=== PATIENT | female | born 1990 | race Two or more races ===

== ENCOUNTER 2024-12-11 01:55 | Emergency (ER) | payer MEDICAID, OTHER ==
[~2024-12-11] VITALS: Ht 162.6 cm; Wt 97.2 kg
--- NOTE | 2024-12-11 03:17 | ED.PDOC ---
History of Present Illness(SKN HPI Comments Pt arrived in ER due to abcess to left jawline x 2 days. Pt alert and orriented x 4. Pt VSS. Pt denies trauma or injury to face. Pt states she woke up 2 days ago to small draining pimple and now her left jawline is swollen and red. No drainage present. Nausea. Ptadmits to meth use. 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 History Social History Smoker: Non-Smoker Alcohol: Denies ETOH Use Drugs: Methamphetamine Constitutional: denies: chills, diaphoresis, fatigue, fever, malaise, sweats, weakness, others EENTM: denies: blurred vision, double vision, ear bleeding, ear discharge, ear drainage, ear pain, ear ringing, eye pain, eye redness, hearing loss, mouth pain, mouth swelling, nasal discharge, nose bleeding, nose congestion, nose pain, photophobia, tearing, throat pain, throat swelling, voice changes, others Respiratory: denies: cough, hemoptysis, orthopnea, SOB at rest, shortness of breath, SOB with excertion, stridor, wheezing, others Cardiovascular: denies: chest pain, dizzy spells, diaphoresis, Dyspnea on exertion, edema, irregular heart beat, left arm pain, lightheadedness, palpitations, PND, syncope, others Gastrointestinal: denies: abdomen distended, abdominal pain, blood streaked bowels, constipated, diarrhea, dysphagia, difficulty swallowing, hematemesis, melena, nausea, poor appetite, poor fluid intake, rectal bleeding, rectal pain, vomiting, others Genitourinary: denies: abnormal vagina bleeding, burning, dyspareunia, dysuria, flank pain, frequency, hematuria, incontinence, pain, , vagina discharge, urgency, others Neurological: denies: dizziness, fainting, headache, left sided numbness, left sided weakness, numbness, paresthesia, pre-existing deficit, right sided numbness, right sided weakness, seizure, speech problems, tingling, tremors, weakness, others Musculoskeletal: denies: back pain, gout, joint pain, joint swelling, muscle pain, muscle stiffness, neck pain, others Integumetry: reports: wounds (Redness and swelling over chin); denies: bruises, change in color, change in hair/nails, dryness, laceration, lesions, lumps, rash, others Allergic/Immunocompromised: denies: Difficulty Healing, Frequent Infections, Hives, Itching, others Hematologic/Lymphatic: denies: anemia, blood clots, easy bleeding, easy bruising, swollen glands, others Endocrine: denies: excessive hunger, excessive sweating, excessive thirst, excessive urination, flushing, intolerance to cold, intolerance to heat, unexplained weight gain, unexplained weight loss, others Psychiatric: denies: anxiety, bipolar disorder, depression, hopeless, panic disorder, schizophrenia, sleepless, suicidal, others Physical Exam General Appearance: No Apparent Distress, Normal HEENT: Pharynx Normal Neck: Full Range of Motion, Non-Tender Respiratory: Lungs Clear, No Respiratory Distress, Normal Breath Sounds Cardiovascular: No Edema, No JVD, No Murmur, No Gallop, Normal Peripheral Pulses, Regular Rate/Rhythm Breast Exam: Deferred Gastrointestinal: Non Tender, Soft Genitalia: Deferred Pelvic: Deferred Rectal: Deferred Extremities: Normal capillary refill, Normal inspection, Normal range of motion, Non-tender, No pedal edema Musculoskeletal : Apperance: Normal Neurologic: 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 Was a procedure done?: No Differential Diagnosis (INTG) Differential Diagnosis: Cellulitis Differential Diagnosis: Abscess X-Ray, Labs, Meds, VS Vital Signs Date Time Temp Pulse Resp B/P (MAP) Pulse Ox O2 Delivery O2 Flow Rate FiO2 12/11/24 02:15 98.3 112 18 121/88 (99) 99 X-Ray, Labs, Meds, VS Comment Given Rocephin 1 g and [place] 10 mg p.o. reports improvement in pain and symptoms requesting discharge at this time. Trial doxycycline 100 mg twice daily x7 days. Ibuprofen for the pain. Advised to apply warm washcloth several times a day to encourage drainage. Advised to follow up with her PCP, urgent care or back here within 2 days for abscess re-evaluation. ER return precautions given patient indicates understanding agrees with discharge plan of care. Time of 1ST Reevaluation: 03:25 Reevaluation 1ST: Improved Patient Education/Counseling: Diagnosis, Treatment, Prognosis, Need For Follow Up Family Education/Counseling: Diagnosis, Treatment, Prognosis, Need For Follow Up Departure 1 Departure Time of Disposition: 03:26 Impression: Primary Impression: Abscess or cellulitis of chin Disposition: 01 HOME / SELF CARE / HOMELESS Condition: Stable e-Prescriptions Ibuprofen (Ibuprofen) 800 Mg Tab 1 TAB PO TID PRN for 5 Days, #15 TAB Prov: MARY CLARK 12/11/24 Doxycycline Hyclate (Doxycycline Hyclate) 100 Mg Cap 100 MG PO BID for 7 Days, #14 CAP Prov: MARY CLARK 12/11/24 Discharged With: Spouse Critical Care Note Critical Care Time?: No Stability Stability form required: No MARY CLARK Dec 11, 2024 03:17
[2024-12-11] MEDS ORDERED: IBUP-1456 PO (03:28)
[2024-12-11] MEDS ORDERED: DOXY100C4 PO (03:28)
[2024-12-11] MEDS: HYDROcodone-ACET 5/325MG TAB PO ONE (03:30)
[2024-12-11] MEDS: cefTRIAXone SOD 1,000 MG VL IM ONE (03:30)
[2024-12-11] MEDS: LIDOCAINE 1% HCL (LOCAL ANESTH.) INJ 20ML MDV IJ ONE (03:31)
[2024-12-11 03:42] VITALS: BP 121/88; PULSE 112; RESP 18; TEMP 98.3; O2SAT 99
== END 2024-12-11 03:57 | disposition home or self-care (01) ==
LOC: ER 01:55
DX: S01.83XA Puncture wound without foreign body of other part of head, initial encounter (principal); L03.211 Cellulitis of face; R11.0 Nausea; F15.90 Other stimulant use, unspecified, uncomplicated; X58.XXXA Exposure to other specified factors, initial encounter; Y93.89 Activity, other specified; Y92.89 Other specified places as the place of occurrence of the external cause; Y99.8 Other external cause status
CPT/HCPCS: 96372; 99283; J0696; J2003